=== PATIENT | female | born 1935 | race Caucasian/White ===

== ENCOUNTER 2017-02-03 10:29 | Observation (INO) | payer MEDICARE, BC ==
--- NOTE | ~2017-02-03 | EKG ---
PATIENT: ERIC BUSH UNIT #: [id number] Ventricular Rate: 63 BPM Atrial Rate: 63 BPM P-R Interval: 432 ms QRS Duration: 92 ms Q-T Interval: 466 ms QTC Calculation(Bezet): 476 ms P [place]: 69 degrees Calculated R [place]: 17 degrees Calculated T [place]: 109 degrees Diagnosis Line: Electronic atrial pacemaker Diagnosis Line: T wave abnormality, consider lateral ischemia Diagnosis Line: Prolonged QT Diagnosis Line: Abnormal ECG Diagnosis Line: When compared with ECG of 03-FEB-2017 17:12, Diagnosis Line: (unconfirmed) Diagnosis Line: No significant change was found Diagnosis Line: Confirmed by JALYN ALVA MD ([id number]) on Diagnosis Line: 02/04/2017 7:40:51 AM INTERPRETING MD: HUGO
--- NOTE | ~2017-02-03 | TH ---
Unit #: [id number] #: [id number] Patient: ERIC BUSH [id number] [address] [address] [id number] I MR#: [id number] NAME: ERIC BUSH. : 1935 SEX: F STUDY DATE/TIME: 02/04/2017 UNIT: [facility] ROOM: 569 STUDY DESCRIPTION: Lexiscan stress test - Nuclear Attending Physician: Binh Carter M.D. Primary Care Physician: Ivan Parra M.D. CARDIOLOGY REPORT PROCEDURE PERFORMED Lexiscan Cardiolite stress test - Nuclear portion. PROCEDURE Using technetium 99m-labeled Cardiolite, rest and stress SPECT images were obtained. Multiple SPECT images were obtained in various views, including horizontal and vertical long axis and short axis views of the left ventricle. Images were obtained by gated SPECT method. The patient was administered 11.3 mCi of Cardiolite at rest. The patient was administered 33.6 mCi of Cardiolite after Lexiscan infusion was completed. On the stress images, there is normal perfusion noted. The rest images show normal perfusion. Comparing the rest and stress images, there is no stress-induced ischemia noted. The left ventricular ejection fraction is calculated to be 61%. There is no focal wall motion abnormality seen. CONCLUSION 1. No stress-induced ischemia noted. 2. The left ventricular ejection fraction is calculated to be 61%. 3. There is no focal wall motion abnormality seen. 4. Normal Lexiscan Cardiolite stress test. Dictated by... Tricia Cramer/jerad TD: 02/04/2017 15:26 JOB #: [id number] CARDIOLOGY REPORT Page 1 of 1 X Kelsie Green MD <ELECTRONICALLY SIGNED> 04/09/17 1429 CARDIOLOGY REPORT
--- NOTE | ~2017-02-03 | EKG ---
PATIENT: ERIC BUSH UNIT #: [id number] Ventricular Rate: 65 BPM Atrial Rate: 65 BPM P-R Interval: 326 ms QRS Duration: 88 ms Q-T Interval: 450 ms QTC Calculation(Bezet): 468 ms P [place]: 52 degrees Calculated R [place]: 22 degrees Calculated T [place]: 76 degrees Diagnosis Line: Sinus rhythm with 1st degree A-V block Diagnosis Line: Nonspecific T wave abnormality Diagnosis Line: Abnormal ECG Diagnosis Line: When compared with ECG of 06-SEP-2016 11:59, Diagnosis Line: Nonspecific T wave abnormality has replaced Diagnosis Line: inverted T waves in Lateral leads Diagnosis Line: Confirmed by JALYN ALVA MD ([id number]) on Diagnosis Line: 02/04/2017 7:39:03 AM INTERPRETING MD: HUGO
--- NOTE | ~2017-02-03 | EKG ---
PATIENT: ERIC BUSH UNIT #: [id number] Ventricular Rate: 65 BPM Atrial Rate: 65 BPM P-R Interval: 388 ms QRS Duration: 90 ms Q-T Interval: 448 ms QTC Calculation(Bezet): 465 ms P [place]: 49 degrees Calculated R [place]: 12 degrees Calculated T [place]: 107 degrees Diagnosis Line: Atrial-paced rhythm with prolonged AV conduction Diagnosis Line: Nonspecific ST and T wave abnormality Diagnosis Line: Abnormal ECG Diagnosis Line: When compared with ECG of 03-FEB-2017 11:49, Diagnosis Line: (unconfirmed) Diagnosis Line: Electronic atrial pacemaker has replaced Sinus Diagnosis Line: rhythm Diagnosis Line: Confirmed by JALYN ALVA MD ([id number]) on Diagnosis Line: 02/04/2017 7:40:32 AM INTERPRETING MD: HUGO
--- NOTE | ~2017-02-03 | CT52 ---
[facility] A Service [facility] RADIOLOGY TEXT RESULTS PATIENT: ERIC BUSH LOCATION: [facility] : 37 UNIT #: [id number] AGE: [address]: Binh Carter MD SEX: F ORDER DR: [id number] [facility] [address] [facility]. [place], [place] [address] [id number] MR#: [id number] Acc #: [id number] NAME: ERIC BUSH : 1935 SEX: F STUDY DATE/TIME: 02/03/2017 12:31 UNIT: [facility] ROOM: STUDY DESCRIPTION: CT Cervical Spine Wo Cont Attending Physician: Bro Clayton M.D. Ordering Physician: Bro Clayton M.D. Primary Care Physician: Ivan Parra M.D. MEDICAL IMAGING REPORT This report is preliminary unless electronic signature is present EXAM CT scan of the cervical spine, without contrast, 02/03/2017. HISTORY Bilateral hand and arm pain for a week with neck pain. TECHNIQUE Axial 2-mm images were obtained through the cervical spine and sagittal and coronal reconstructions are generated. This CT exam was performed with one or more of the following radiation dose reduction techniques: automatic exposure control, adjustment of mA and/or kV according to patient size, and iterative reconstruction. FINDINGS The vertebral bodies have normal alignment. There is facet degenerative change from C3 through C7. There is no significant posterior osteophyte formation. No bony spinal stenosis identified. There is some mild neural foraminal narrowing at C4-C5 and C5-C6. IMPRESSION Cervical spine degenerative changes from C3 through C7. There is no bony spinal canal stenosis, and only mild neural foraminal narrowing is suggested. There is no subluxation. Dictated by... Rufus Diana M.D. THIS IS AN ELECTRONICALLY VERIFIED REPORT Rufus Diana M.D. at 02/03/2017 4:37 PM MONIQUE/kota [facility] A Service [facility] RADIOLOGY TEXT RESULTS PATIENT: ERIC BUSH LOCATION: [facility] [id number] : 37 UNIT #: [id number] AGE: [address]: Binh Carter MD SEX: F ORDER DR: TD: 02/03/2017 14:18 JOB #: [id number] MEDICAL IMAGING REPORT Page 1 of 1 COPY
--- NOTE | ~2017-02-03 | TH ---
Unit #: [id number] #: [id number] Patient: ERIC BUSH [id number] [address] [address] [id number] I MR#: [id number] NAME: ERIC BUSH. : 1935 SEX: F STUDY DATE/TIME: 02/04/2017 UNIT: [facility] ROOM: 569 STUDY DESCRIPTION: Attending Physician: Binh Carter M.D. Primary Care Physician: Ivan Parra M.D. CARDIOLOGY REPORT EXAM Lexiscan Cardiolite stress test, nuclear portion. PROCEDURE Using technetium 99m labeled Cardiolite, rest and stress SPECT images were obtained. Multiple SPECT images were obtained in various views including horizontal and vertical long axis and short axis views of the left ventricle. Images were obtained by gated SPECT method. The patient was administered 11.3 mCi of Cardiolite at rest. The patient was administered 33.6 mCi of Cardiolite after Lexiscan infusion was completed. On the stress images, there is normal perfusion noted. The rest images show normal perfusion. Comparing rest and stress images, there is no stress-induced ischemia noted. The left ventricular ejection fraction is calculated to be 61%. There is no focal wall motion abnormality seen. CONCLUSION 1. No stress-induced ischemia noted. 2. The left ventricular ejection fraction is calculated to be 61%. 3. There is no focal wall motion abnormality seen. 4. Normal Lexiscan Cardiolite stress test. 5. Technically limited study due to patient's body habitus. Clinical correlation is requested. Dictated by... Tricia Cramer TD: 02/04/2017 15:00 JOB #: [id number] CARDIOLOGY REPORT Page 1 of 1 X Kelsie Green MD <ELECTRONICALLY SIGNED> 04/09/17 1429 CARDIOLOGY REPORT
--- NOTE | ~2017-02-03 | ST ---
Unit #: [id number] #: [id number] Patient: ERIC BUSH [id number] [facility]. [address] [place], [place] [address] [id number] I MR#: [id number] NAME: ERIC BUSH. : 1935 SEX: F STUDY DATE/TIME: 02/04/2017 UNIT: [facility] ROOM: 569 STUDY DESCRIPTION: Attending Physician: Binh Carter M.D. Primary Care Physician: Ivan Parra M.D. CARDIOLOGY REPORT EXAM EKG portion of Lexiscan Cardiolite stress test. REASON FOR EXAM Chest pain. DISCUSSION Baseline EKG reveals atrial-paced rhythm, nonspecific ST-T wave changes noted. A total of 0.4 mg of Lexiscan was injected per protocol followed by Cardiolite. There were no complaints of chest pain. There were rare PVCs. There were no ST or T wave changes to suggest ischemia. The maximal heart rate was 75 beats per minute with a maximum blood pressure of 143/74 mmHg. Test was stopped due to protocol completion. IMPRESSION 1. Negative EKG portion of Lexiscan Cardiolite stress test. 2. There were no complaints of chest pain. 3. There were rare premature ventricular complexes noted. 4. There were no ST or T wave changes to suggest ischemia. 5. Please correlate with Cardiolite images. Dictated by... Angelita Land APRN for Tricia Cramer TD: 02/04/2017 16:52 JOB #: [id number] CARDIOLOGY REPORT Page 1 of 1 X CARDIOLOGY REPORT
--- NOTE | ~2017-02-03 | DS ---
Unit #: [id number] #: [id number] Patient: ERIC BUSH [id number] [address] [place], [place] [address] [id number] I MR#: [id number] NAME: ERIC BUSH. ROOM: 569 Age: 81 Sex: F Admission Date: 02/03/2017 : 1935 Discharge Date: 02/04/2017 Attending Physician: Binh Carter M.D. Primary Care Physician: Ivan Parra M.D. DISCHARGE SUMMARY SHORT-STAY SUMMARY HISTORY OF PRESENT ILLNESS This is a 81-year-old white female, who is known to Dr. Avina, that has a history of coronary artery disease where she underwent angioplasty with stent placement to the circumflex and left anterior descending artery in September 2008. In 05/[address] elevation myocardial infarction according to records from [place] and underwent PCI and stent placement to the right coronary artery. She has postinfarction angina and went back to the cardiac catheterization lab where she was found to have 80% restenosis to the mid LAD stent. She underwent angioplasty with insertion of a Resolute drug-eluting stent. This resulted in 30% to 40% ostial plaque shifting that jailed the diagonal side branch. She had a Lexiscan Cardiolite stress test in March of 2016 which was normal. The patient presents to the emergency room with a complaint of left upper anterior chest pain which she describes as sharp pain lasting for five shadi. The pain mostly occurs when she is upset. She only has dyspnea on extreme exertion like vacuuming. She also has some complaints of left arm numbness and pain with posterior neck pain for the past two weeks. Yesterday this pain was also in her right hand. The left arm discomfort intermittently accompanies chest pain. She says she went to her primary care physician's office and was told that she had arthritis in her hands. She went swimming yesterday and afterwards had chest pain. Today, while she was in the bank, she became upset and had recurrence of her chest pain. She came to the hospital for evaluation. In the emergency room she was hypertensive with blood pressure of 201/78 mmHg. She was treated with labetalol. CT of the cervical spine reveals no cervical stenosis but there were degenerative changes from C3 to C7. Troponin initially negative with no acute electrocardiogram changes. PAST MEDICAL HISTORY 1. Cardiac catheterization 10/16/[address] Hopper at [facility] which revealed LAD with 50% mid vessel stenosis. There was 70% prior to the bifurcation. Ramus intermedius 50% to 70% proximal. Circumflex artery midvessel 70%, distal 25%. Right coronary artery dominant vessel with ostial stenosis of 25%, mid vessel 50%. 2. Status post percutaneous coronary intervention and stent to the circumflex and LAD 09/2008 at [facility]. 3. ST elevation myocardial infarction in 05/2015, status post PCI and stent to the right coronary artery. 4. PCI with stent placement to the mid LAD for previous stent restenosis of 80% secondary to post infarction angina 06/03/[address] Franco Unit #: [id number] #: [id number] Patient: ERIC BUSH at [facility]. 5. Lexiscan Cardiolite stress test 03/24/2016 showed an ejection fraction equal to 60%, normal. 6. Sick sinus syndrome, status post dual-chamber Medtronic permanent pacemaker 08/10/[address] Yadiel Jarquin at [facility]. 7. Two-D echocardiogram 04/20/2015 shows an ejection fraction equal to 55% to 60% with mild aortic regurgitation, trivial to mild mitral regurgitation, trivial to mild tricuspid regurgitation. Right ventricular systolic pressure 56 mmHg. 8. Hypertension. 9. Hyperlipidemia. 10. Diabetes mellitus type 2. 11. Obesity. 12. Former smoker. PAST SURGICAL HISTORY 1. Bladder repair. 2. Permanent pacemaker. SOCIAL HISTORY The patient lives at home alone. She has not smoked for many years. She denies illicit drug and alcohol use. FAMILY HISTORY Mother at age 69 from a myocardial infarction. Father at age 37 of unknown causes. ALLERGIES Ciprofloxacin, Lipitor, sulfur and gluten meal. HOME MEDICATIONS 1. Allopurinol 100 mg daily. 2. Aspirin 81 mg daily. 3. Atenolol 50 mg daily. 4. Plavix 75 mg daily. 5. Imdur 120 mg daily. 6. Lisinopril 2.5 mg daily. 7. Glucophage 500 mg b.i.d. 8. Nitroglycerin 0.4 mg sublingual p.r.n. 9. Ranexa 500 mg b.i.d. REVIEW OF SYSTEMS CONSTITUTIONAL: Negative for fever or chills. Reports no weight gain or weight loss. HEENT: No headache, hearing or visual changes or difficulty with swallowing. No dizziness. CARDIOVASCULAR: Has chest pain described in the HPI. Denies palpitations. No paroxysmal nocturnal dyspnea or orthopnea. No syncope or near syncope. RESPIRATORY: Reports dyspnea on exertion. No cough or hemoptysis. GASTROINTESTINAL: No abdominal pain, nausea or vomiting. No constipation or melena. EXTREMITIES: Has no lower extremity edema. Reports pain with numbness in her right foot and leg. PHYSICAL EXAMINATION VITAL SIGNS: Blood pressure 182/76, heart rate 68, temperature 98.1, BMI Unit #: [id number] #: [id number] Patient: ERIC BUSH is 38. GENERAL: This is an obese, 81-year-old, elderly white female who is in no acute respiratory distress. NEUROLOGICAL: She is awake, alert and oriented. There are no focal weaknesses. NECK: Trachea is midline. No thyromegaly or lymphadenopathy. No jugular venous distention. HEART: S1, S2. Heart sounds are normal. No murmurs. No rubs. No clicks. Regular rate and rhythm. LUNGS: Clear, without rales, rhonchi or wheezes. ABDOMEN: Soft, nontender, with bowel sounds present. EXTREMITIES: Without leg edema. Pedal pulses are absent. SKIN: Warm and dry. DIAGNOSTIC STUDIES LABORATORY: Glucose 169, BUN 13, creatinine 0.6, sodium 137, potassium 4.2, magnesium 1.9, troponin less than 0.05, white count 7.5, hemoglobin 11.8, hematocrit "81.1", platelet count is 401. IMAGING: Chest x-ray shows stable cardiomegaly. Low lung volumes. CARDIOVASCULAR: EKG normal sinus rhythm with a rate of 65 beats per minute, with first-degree AV block. Nonspecific ST-wave abnormalities. IMPRESSION 1. Atypical chest pain. 2. History of ST elevation myocardial infarction 05/2015, status post percutaneous coronary intervention and stent to the right coronary artery. 3. Percutaneous coronary intervention and stent to the circumflex and left anterior descending in 2008. 4. Percutaneous coronary intervention and stent to the left anterior descending restenosis 05/2015. 5. Normal Lexiscan Cardiolite stress test 03/24/2016. 6. Hypertension, uncontrolled. 7. Hyperlipidemia. 8. Diabetes mellitus type 2. 9. Left arm pain and numbness, questionable etiology. 10. Permanent pacemaker. 11. Preserved left ventricular systolic function, ejection fraction of 55% to 60%. PLAN 1. The patient's initial troponin is negative. She has no acute electrocardiogram changes. Chest pain appears to be atypical in nature. Because of her extensive cardiac history will continue to trend cardiac enzymes and troponin to rule out myocardial infarction. 2. Anticoagulate with aspirin and Lovenox. 3. Continue aspirin, beta reese, statin and Ranexa. 4. Increase lisinopril for blood pressure control. 5. May require repeat stress test in the a.m. if enzymes are normal. 6. Follow up with Dr. Avina at discharge. HOSPITAL COURSE Dr. Carter examined the patient and felt the patient's chest pain is musculoskeletal in origin but given her history of coronary artery disease with stents in the past she was scheduled for a walking Lexiscan Cardiolite stress test. The stress test revealed no stress-induced Unit #: [id number] #: [id number] Patient: ERIC BUSH ischemia with ejection fraction of 61%. She could be discharged home today to followup with Dr. Avina in two to four weeks. Follow up with her primary care physician in one to two weeks. DISCHARGE MEDICATIONS No changes in her medication regimen except for increase in lisinopril to 10 mg q.h.s. because of uncontrolled hypertension. Dictated by... Yaritza DukesRJayaNJaya for Tricia Zuñiga/genny TD: 02/04/2017 17:35 JOB #: [id number] CC: Gagandeep Avina IV., M.D. DISCHARGE SUMMARY Page 1 of 1 X Aayush Monahan APRN DISCHARGE SUMMARY
--- NOTE | ~2017-02-03 | CR72 ---
[facility] A Service of [facility] RADIOLOGY TEXT RESULTS PATIENT: ERIC BUSH LOCATION: [facility] : 37 UNIT #: [id number] AGE: [address]: Bro Clayton MD SEX: F ORDER DR: [id number] [facility] [address] [place], [place] [address] [id number] E MR#: [id number] Acc #: [id number] NAME: ERIC BUSH : 1935 SEX: F STUDY DATE/TIME: 02/03/2017 11:55 UNIT: [facility] ROOM: STUDY DESCRIPTION: CR Chest Single View Portable Attending Physician: Bro Clayton M.D. Ordering Physician: Bro Clayton M.D. Primary Care Physician: Ivan Parra M.D. MEDICAL IMAGING REPORT This report is preliminary unless electronic signature is present EXAM Chest portable 02/03/2017 1155 hours HISTORY 81-year-old woman with chest pain and left arm stiffness for 1 week. History of heart disease with hypertension, coronary stents and pacemaker COMPARISON 11/02/2016. FINDINGS Portable upright chest demonstrates low lung volumes. Given this level of inspiration, There is stable cardiomegaly and dual lead pacer. There is a stable tortuous aorta. There is perihilar and basilar vascular crowding without definite edema, effusion or pneumothorax. IMPRESSION Extremely low lung volume film with stable cardiomegaly, tortuous aorta and pacemaker. There is perihilar and basilar vascular crowding bilaterally. No definite edema, pneumonia or effusion. Dictated by... Liz Aquino M.D. THIS IS AN ELECTRONICALLY VERIFIED REPORT Liz Aquino M.D. at 02/03/2017 2:26 PM LILLIAM/alyssa TD: 02/03/2017 12:20 JOB #: [id number] MEDICAL IMAGING REPORT [facility] Service of [facility] RADIOLOGY TEXT RESULTS PATIENT: ERIC BUSH LOCATION: [facility] #: [id number] : 39 UNIT #: [id number] AGE: [address]: Bro Clayton MD SEX: F ORDER DR: Page 1 of 1 COPY
[~2017-02-03 10:29] MED LIST: ACTOS PO; ALLOPURINOL300 MG PO; ASPIRIN EC81 M1 PO; ASPIRIN PO; ASPIRIN81 M1 PO; ATENOLOL50 MG PO; CENTRUM SILVER PO; CIPRO PO; CITRATE OF MAG300 ML PO; COLACE PO; COLACE50 MG PO; COUMADIN1 MG PO; DIOVAN PO; DOXYCYCLINE PO; GLUCOPHAGE XR500 MG PO; GLUCOPHAGE500 MG PO; GLUCOVANCE 2.5/1 TA1 PO; GLYBURIDE-METFO1 TA2 PO; IMDUR PO; IMDUR-ER60 MG PO; INDOMETHACIN25 MG PO; INDOMETHACIN50 MG PO; INDOMETHACIN75 MG PO; ISORDIL PO; ISOSORBIDE MON120 M1 PO; KCL PO; KEFLEX500 MG PO; LANSOPRAZOLE30 M2 PO; LASIX PO; LOPRESSOR PO; METOPROLOL TAR25 MG PO; MIRALAX255 GM PO; NAPROXEN PO; NIACIN PO; NIACIN100 MG PO; NITROGYLCERIN SUBLINGUAL; NITROQUICK0.4 MG SL; NITROSTAT0.4 MG SL; NORCO PO; PERCOCET5/325 PO; PLAVIX PO; POTASSIUM20 MEQ/15 PO; RANEXA500 MG PO; SIMVASTATIN40 MG PO; TOPROL XL PO; VICODIN 5/500 T1 TAB PO; VITAMIN A; ZESTRIL2.5 MG PO; ZOCOR PO; ZYLOPRIM PO; ZYLOPRIM100 MG PO; [UNRECOGNIZED DRUG - OTHER]
[2017-02-03 12:21] LABS: POC - CKMB 2.7 ng/mL (0.0-7.9); POC - TROPONIN <0.05 ng/mL (<=0.05)
[2017-02-03 12:36] LABS: BASOPHIL% 0.7 % (0-2.5); EOSINOPHIL# 0.2 X10e3 (0-0.7); HEMATOCRIT 37.8 % (35.0-45.0); HEMOGLOBIN 11.8 gm/dL (12.0-16.0); LYMPHOCYTE# 2.1 X10e3 (1.0-3.5); LYMPHOCYTE% 28.1 % (17.0-45.0); MEAN CELL VOLUME 81.1 FL (83-96); MEAN CORPUSCULAR HEMOGLOBIN 25.4 PG (28-34); MEAN CORPUSCULAR HGB CONC 31.3 g/dL (30-36); MEAN PLATELET VOLUME 8.5 FL (6.5-11.5); MONOCYTE# 0.7 X10e3 (0-1.0); MONOCYTE% 9.6 % (3.0-12.0); NEUTROPHIL# 4.5 X10e3 (1.5-7.1); NEUTROPHIL% 59.6 % (40-75); PLATELET COUNT 401 X10e3 (140-420); RED BLOOD COUNT 4.66 X10e (3.90-5.30); RED CELL DISTRIBUTION WIDTH 16.9 % (11.0-15.5); WHITE BLOOD COUNT 7.5 X10e3 (4.0-10.5)
[2017-02-03 12:40] LABS: DIFF IND NO
[2017-02-03 13:00] LABS: PARTIAL THROMBOPLASTIN TIME 24.5 SECONDS (23.5-31.3); PROTHROMBIN TIME (PATIENT) 10.4 SECONDS (9.6-11.5)
[2017-02-03 13:03] LABS: ALBUMIN SERUM 3.7 g/dL (3.5-5.0); BILIRUBIN, DIRECT 0.1 mg/dL (0.0-0.2); BILIRUBIN,INDIRECT 0.2 mg/dL (0.0-0.9); BILIRUBIN,TOTAL 0.3 mg/dL (0.2-2.0); BUN/CREATININE RATIO 21.66; CALCIUM SERUM 8.8 mg/dL (8.4-10.2); CREATININE SERUM 0.6 mg/dL (0.6-1.4); GLOM FILT RATE Estimated 86.7 mL/min (>60); MAGNESIUM 1.9 mg/dL (1.6-3.0); POTASSIUM 4.2 mmol/L (3.5-5.1); PROTEIN TOTAL SERUM 7.2 g/dL (6.0-8.3)
[2017-02-03 14:31] LABS: POC - CKMB 1.9 ng/mL (0.0-7.9); POC - TROPONIN <0.05 ng/mL (<=0.05)
[2017-02-03] MEDS ORDERED: PANTOPRAZOLE SO40 MG PO (15:43)
[2017-02-03 21:30] LABS: %MB 2.4 % (0.0-4.0); MB 3.5 ng/ml
[2017-02-04 03:57] LABS: %MB 2.6 % (0.0-4.0); MB 3.6 ng/ml
[2017-02-04 14:02] LABS: CHOLESTEROL 200 mg/dL (0-200); HDL CHOLESTEROL 32 mg/dL (35-95); LDL/HDL RATIO 4 RATIO (0-4); TRIGLYCERIDES 160 mg/dL (10-160)
[2017-02-04 14:03] LABS: LDL CHOLESTEROL 136 mg/dL (-130)
[2017-02-04] MEDS ORDERED: ZESTRIL10 M1 PO (16:39)
== END 2017-02-04 17:28 | disposition home or self-care (01) ==
LOC: CED 10:29 → CEDOF 15:15 → CED 16:00 → CEDOF 21:32 → C5C 21:32
PROVIDERS: Emergency Medicine; Internal Medicine Cardiovascular Disease
DX: R07.89 Other chest pain (principal); I25.2 Old myocardial infarction; I25.10 Atherosclerotic heart disease of native coronary artery without angina pectoris; T82.855D Stenosis of coronary artery stent, subsequent encounter; I10 Essential (primary) hypertension; E11.9 Type 2 diabetes mellitus without complications; E78.5 Hyperlipidemia, unspecified; M79.602 Pain in left arm; R20.0 Anesthesia of skin; Z95.0 Presence of cardiac pacemaker; Z82.49 Family history of ischemic heart disease and other diseases of the circulatory system; Z87.891 Personal history of nicotine dependence; Z79.82 Long term (current) use of aspirin; Z79.02 Long term (current) use of antithrombotics/antiplatelets; Z88.1 Allergy status to other antibiotic agents; Z88.8 Allergy status to other drugs, medicaments and biological substances
CPT/HCPCS: 36415; 71010; 72125; 78452; 80048; 80061; 80076; 82550; 82553; 82947; 83735; 84443; 84484; 85025; 85610; 85730; 93005; 93017; 94760; 96372; 99285; A9500; G0378; J1650; J1815; J2785